=== PATIENT | female | born 1935 | race Caucasian/White ===

== ENCOUNTER 2017-05-03 10:56 | Emergency (ER) | payer OTHER ==
[~2017-05-03] VITALS: Ht 162.6 cm; Wt 83.5 kg
[~2017-05-03 10:56] MED LIST: FISH OIL 1,0001 EAC7 PO; FISH OIL300 MG PO; HYDROCODON-ACE1 EAC7 PO; LANSOPRAZOLE30 MG PO; LASIX20 MG PO; LEVOTHYROXINE75 MCG PO; METFORMIN HCL500 M1 PO; SUGAR PILL PO; SYNTHROID50 MCG PO; VIACTIV SOFT C1 EACH PO; VITAMIN D31000 UNIT PO; ZANTAC150 MG PO
[2017-05-03 13:40] LABS: HEMATOCRIT 36.7 % (36.0-46.0); HEMOGLOBIN 12.3 G/DL (11.9-15.5); MCH 30.3 PG (29.0-34.0); MCHC 33.5 G/DL (30.0-36.0); MCV 90.4 FL (83-99); PLATELET COUNT 199 K/uL (156-360); RBC DIS.WIDTH-CV 13.6 % (11.8-14.6); RBC DIS.WIDTH-SD 45.4 % (39-53); RED BLOOD COUNT 4.06 M/uL (3.80-5.20); WHITE BLOOD COUNT 6.2 K/uL (4.1-10.2)
[2017-05-03 13:49] LABS: ALBUMIN 3.7 g/dL (3.2-4.8); CHLORIDE 108 mEq/L (99-109); POTASSIUM 4.2 mEq/L (3.7-5.4); SODIUM 138 mEq/L (136-147)
[2017-05-03 13:51] LABS: GLUCOSE 102 mg/dL (70-99); TOTAL PROTEIN 6.6 g/dL (6.4-8.3)
[2017-05-03 13:53] LABS: TOTAL BILIRUBIN 0.4 mg/dL (0.0-1.0)
[2017-05-03 13:55] LABS: ALKALINE PHOSPHATASE 54 IU/L (3-129); CREATININE 1.1 mg/dL (0.6-1.3); GFR ESTIMATE (CALCULATED) 51 mL/min/
[2017-05-03 13:56] LABS: UREA NITROGEN (BUN) 13 mg/dL (9-23)
[2017-05-03 13:57] LABS: AST (GOT) 18 IU/L (2-34)
[2017-05-03 13:58] LABS: ALT (GPT) 16 IU/L (3-49); LIPASE 38 U/L (1.0-51.0)
[2017-05-03 14:15] LABS: APPEARANCE CLEAR ((CLEAR)); BILIRUBIN NEGATIVE; BLOOD NEGATIVE; COLOR STRAW ((YELLOW)); GLUCOSE (STRIP) NEGATIVE; KETONES NEGATIVE; LEUKOCYTES NEGATIVE; NITRITE NEGATIVE; PROTEIN (STRIP) NEGATIVE; SPECIFIC GRAVITY 1.005 (1.000-1.030); UROBILINOGEN 0.2 MG/DL (0.2-1.0)
[2017-05-03] MEDS ORDERED: IBUPROFEN400 MG PO (15:09)
[2017-05-03 15:21] VITALS: BP 144/72
== END 2017-05-03 15:27 | disposition home or self-care (01) ==
LOC: EME 10:56
PROVIDERS: Physician Assistant
DX: S39.012A Strain of muscle, fascia and tendon of lower back, initial encounter (principal); R10.9 Unspecified abdominal pain; K21.9 Gastro-esophageal reflux disease without esophagitis; E03.9 Hypothyroidism, unspecified; E78.5 Hyperlipidemia, unspecified; Z90.49 Acquired absence of other specified parts of digestive tract; Z87.891 Personal history of nicotine dependence
CPT/HCPCS: 74176; 80053; 81003; 83690; 85027; 99281; 99283